=== PATIENT | male | born 1940 | race Caucasian/White ===

== ENCOUNTER 2020-02-07 18:28 | Emergency (ER) | payer MEDICARE, SELFPAY ==
[2020-02-07 18:46] VITALS: BP 134/93; PULSE 86; RESP 16; TEMP 35.8; O2SAT 98
--- NOTE | 2020-02-07 19:13 | ED.SKABFB ---
HPI - Skin/Abscess/Foreign Bdy General Chief complaint: Skin/Abscess/Foreign Body Stated complaint: splinter right wrist Time Seen by Provider: 02/07/20 19:13 Source: patient Mode of arrival: ambulatory Limitations: no limitations History of Present Illness HPI narrative: Andrzej Bergman is an 79 yo male with PMH of A. fib, diabetes, comes to express care for removal of splinter in his right palmar wrist from a wooden wagon, happened just prior to arrival Related Data Home Medications Medication Instructions Recorded Confirmed apixaban [Eliquis] 5 mg PO BID 02/07/20 02/07/20 gemfibrozil 600 mg PO DAILY 02/07/20 02/07/20 glyburide-metformin 1 tablet PO DAILY 02/07/20 02/07/20 lansoprazole [Prevacid] 30 mg PO DAILY 02/07/20 02/07/20 Allergies Allergy/AdvReac Type Severity Reaction Status Date / Time No Known Allergies Allergy Verified 02/07/20 18:52 Review of Systems Review of Systems: Narrative: CONSTITUTIONAL: Denies fever, chills, sweats. EYES: Denies visual changes, redness, discharge. ENT: Denies rhinorrhea, congestion, sore throat, otalgia. CARDIOVASCULAR: Denies chest pain, palpitations, edema. RESPIRATORY: Denies dyspnea, wheezing, cough GASTROINTESTINAL: Denies abdominal pain, nausea, vomiting, diarrhea. GENITOURINARY: Denies dysuria, hematuria, abnormal discharge SKIN: Denies rash or itching. Wood splinter in right wrist NEUROLOGIC: Denies numbness, or focal weakness. PSYCHIATRIC: Denies anxiety or depression. PMFSH Past Medical History Medical History A-fib Chronic anticoagulation Diabetes Family History Family History (Updated 02/07/20 @ 19:16 by Trish Lakhani CNP) Other Heart disease Social History Social History (Updated 02/07/20 @ 19:16 by Trish Lakhani CNP) Smoking status: Former smoker Alcohol intake: former Gender identity (if verbalized by the patient): Male Comments At time of signature, I agree with nursing past medical, surgical, social and family history. There is no relevant family history pertinent to the presenting complaint. Exam Narrative: Exam Narrative: GENERAL: This is a well-nourished, well-developed patient, in mild distress. HEAD: normocephalic, atraumatic. EYES: Sclera clear/white. Vision is grossly intact. EARS: External ears normal, . Hearing grossly intact. NOSE: External nose normal without nasal discharge, nares without redness, no rhinorrhea. THROAT: Mucous membranes moist, posterior pharynx NECK: Neck supple, CARDIOVASCULAR: Regular rate and rhythm without murmurs, gallops, or rubs. RESPIRATORY: Clear to auscultation. Breath sounds equal bilaterally. No wheezes, rales, or rhonchi. GASTROINTESTINAL: Abdomen soft, SKIN: warm, intact with no suspicious lesions or rash, good texture and turgor. Splinter on palmar side of right wrist, skin pink, NEURO: awake, alert, and oriented to person, place and time. There were no obvious focal neurologic abnormalities. Steady gait EXTREMITIES: Normal range of motion. BACK: Nontender without deformity Course Course Emergency Course: Splinter removal from right wrist, started on Keflex Given tetanus booster Follow-up with primary care physician Vital Signs Vital signs: Vital Signs Temperature 96.5 F L 02/07/20 18:46 Pulse Rate 86 02/07/20 18:46 Respiratory Rate 16 02/07/20 18:46 Blood Pressure 134/93 H 02/07/20 18:46 Pulse Oximetry 98 02/07/20 18:46 Temperature 96.5 F L 02/07/20 18:46 Pulse Rate 86 02/07/20 18:46 Respiratory Rate 16 02/07/20 18:46 Blood Pressure 134/93 H 02/07/20 18:46 Pulse Oximetry 98 02/07/20 18:46 Procedures Foreign Body Removal Foreign Body #1: Foreign Body Removal Date: 02/07/20 Foreign Body Removal Time: 19:17 Time Out Performed: no Site: right and hand Sedation/Analgesia: other (3 cc lidocaine 1%) Technique: manual removal and removal wi
[2020-02-07] MEDS: TETANUS,DIPHTHERIA,AC PERTUSSIS ADULT (0.5 ML) BOOSTRIX IM (19:28)
== END 2020-02-07 19:42 | disposition home or self-care (01) ==
PROVIDERS: Emergency Provider Nurse Practitioner; PCP Internal Medicine
DX: S61.541A Puncture wound with foreign body of right wrist, initial encounter (principal); W45.8XXA Other foreign body or object entering through skin, initial encounter; Z23 Encounter for immunization; Z87.891 Personal history of nicotine dependence; I48.91 Unspecified atrial fibrillation; E11.9 Type 2 diabetes mellitus without complications; Z79.01 Long term (current) use of anticoagulants
CPT/HCPCS: 90471; 90715; 99203; G0463